=== PATIENT | male | born 1960 | race Caucasian/White ===

== ENCOUNTER 2019-10-15 18:35 | Inpatient (IN) | payer MEDICAID, OTHER ==
[~2019-10-15] VITALS: Ht 182.9 cm; Wt 136.1 kg
--- NOTE | 2019-10-15 18:47 | NUR ---
PATIENT DENIES OTHER COMPLAINTS
[2019-10-15 18:59] VITALS: Ht 182.9 cm; Wt 136.1 kg
--- NOTE | 2019-10-15 19:08 | NUR ---
REPORT TO LEXII DE SANTIAGO
--- NOTE | 2019-10-15 19:11 | NUR ---
REPORT RECIEVED FROM OLIVE SHULTZ
--- NOTE | 2019-10-15 19:49 | NUR ---
CONSENT FOR TDAP VACCINATION SIGNED AND PLACED IN CHART
--- NOTE | 2019-10-15 19:49 | NUR ---
WOUND CULTURE COLLECTED AND SENT TO LAB
--- NOTE | 2019-10-15 20:02 | NUR ---
XRAY AT BEDSIDE
[2019-10-15] MEDS ORDERED: ZESTRIL40 MG PO (21:09)
[2019-10-15] MEDS ORDERED: COUMADIN2 MG PO (21:09)
[2019-10-15 21:32] LABS: BASOPHIL % 0.3 % (0-2); PLATELET COUNT 137 x10^3mcL (130-400); RED CELL DISTRIBUTION WIDTH 14.1 % (11.5-14.5)
[2019-10-15 21:41] LABS: CALCIUM 8.9 mg/dL (8.5-10.1); CARBON DIOXIDE 28.4 mmol/L (21-32); CHLORIDE SERUM 103 mmol/L (98-107); CREATININE SERUM 0.8 mg/dL (0.7-1.3); GFR1 > 60 mL/min; GLUCOSE SERUM 91 mg/dL (74-106); POTASSIUM SERUM 3.6 mmol/L (3.5-5.1); SODIUM SERUM 138 mmol/L (136-145)
[2019-10-15 21:46] LABS: ALKALINE PHOSPHATASE 104 U/L (46-116); ALT/SGPT 46 U/L (16-63); AST/SGOT 65 U/L (15-37); BILIRUBIN TOTAL 1.43 mg/dL (0.20-1.00); TOTAL PROTEIN, SERUM 8.1 g/dL (6.4-8.2)
--- NOTE | 2019-10-15 21:46 | NUR ---
REPORT GIVEN TO KIANA SHULTZ. ALL QUESTIONS AND CONCERNS ADDRESSED AT THIS TIME
[2019-10-15 21:51] LABS: ALBUMIN 3.3 g/dL (3.4-5.0)
[2019-10-15 22:33] VITALS: BP 155/90
--- NOTE | 2019-10-15 22:33 | NUR ---
PT C/O 06/04 RLE PAIN. MORPHINE GIVEN PER ORDER. SPOKE TO DR. TSAI REGARDING PT TAKING COUMADIN. RESIDENT STATED PT TO START ON HEPARIN SQ D/T PT BEING UNCERTAIN OF HIS COUMADIN DOSE.
--- NOTE | 2019-10-15 22:48 | NUR ---
RECEIVED PT FROM ER, PT ADMIT FOR CRUSH INJURY RIGHT ANKLE, PT IS A/O X4, VERBAL RESPONSIVE, LUNG SOUND CLEAR BILATERAL, NO COUGH, NO SOB. PT DENY ANY CHEST PAIN OR DISCOMFORT, BOWEL SOUND PRESENT ALL 4 QUADRANTS, NO DISTENTION, NO TENDER. PT COME UP FROM ER, RIGTH LOW EXTREMITIES WAS WRAPPED WITH SPLINT. PT STATE HE HAS OPEN WOUND AT BOTH SIDE OF ANKLE, UNABLE TO REMOVE THE WRAP TO TAKE PICTURE AT THIS MOMENT, PT DENY ANY NUMBNESS OR TINGLING AT RIGHT TOES. IV AT LEFT HAND, NO LEAKING, NO INFILTRATION. ALL ADLS ASSIST, ALL NEED MET, CALL LIGHT IN REACH, WILL CONTINUE TO MONITOR.
--- NOTE | 2019-10-16 00:29 | NUR ---
PT RESTING IN BED WITH EYES CLOSED. NO SIGNS OF DISTRESS OR PAIN NOTED. BREATHING EVEN/UNLABORED ON RA. RLE SPLINTED AND ELEVATED WITH PILLOWS AND TOWELS. CALL LIGHT WITHIN REACH, BED AT LOWEST POSITION. WILL CONTINUE TO MONITOR.
--- NOTE | 2019-10-16 02:37 | NUR ---
SPOKE TO PHARMACY INQUIRING COUMADIN VERIFICATION. PHARMACIST STATED "MORNING PHARMACY TAKES CARE OF THAT." INFORMED DR. TSAI COUMADIN TO BE STARTED ON DAY SHIFT. PT SNORING. RLE ELEVATED. SPLINT IN PLACE.
--- NOTE | 2019-10-16 05:30 | NUR ---
PT AWAKE AND C/O RLE PAIN 05/04. DECLINED MORPHINE, PT STATED "I DON'T KNOW HOW IT MAKES ME FEEL." NORCO GIVEN INSTEAD. RLE SPLINT IN PLACE, DRESSING CDI. ELEVATED BY PILLOWS. PENDING PODIATRY CONSULT TODAY. CALL LIGHT WITHIN REACH, BED AT LOWEST POSITION. WILL ENDORSE TO DAY NURSE.
[2019-10-16 05:49] VITALS: BP 126/77
[2019-10-16 06:48] LABS: UA SPECIFIC GRAVITY 1.025 (1.005-1.035); microscopic required? YES; urine erythrocyte NEGATIVE (NEGATIVE)
--- NOTE | 2019-10-16 07:10 | NUR ---
RECIEVED PATIENT FROM [facility] NURSE. PATIENT AWAKE AND ORIENTED. NS INFUSING TO LEFT HAND AT 100/HOUR. RLE SPLINT CAST INTACT. RLE ELEVATED ON PILLOW. DRESSING CHANGE PERFORMED BY PODIATRY. PICTURES TAKEN AND PLACED IN PATIENT'S CHART. EYTHEMA AND EDEMA PRESENT TO ANTERIOR AND POSTERIOR ANKLE. MORPHINE ADMINISTERED PRIOR TO DRESSING CHANGE NOT ENOUGH TIME ELAPSED TO GIVE NORCO. PATIENT SENT FOR CT OF ANKLE. CURRENTLY AWAITING ANKLE CT RESULTS.
[2019-10-16 07:31] LABS: CALCIUM 8.5 mg/dL (8.5-10.1); CARBON DIOXIDE 27.4 mmol/L (21-32); CHLORIDE SERUM 105 mmol/L (98-107); CREATININE SERUM 0.7 mg/dL (0.7-1.3); GFR1 > 60 mL/min; GLUCOSE SERUM 75 mg/dL (74-106); MAGNESIUM 1.9 mg/dL (1.8-2.4); PHOSPHOROUS 3.5 mg/dL (2.5-4.9); POTASSIUM SERUM 3.3 mmol/L (3.5-5.1); SODIUM SERUM 140 mmol/L (136-145)
[2019-10-16 08:17] LABS: AMPHETAMINE QUAL UR NONE DETECTED (See below)
[2019-10-16 08:25] LABS: BASOPHIL % 0.2 % (0-2); PLATELET COUNT 121 x10^3mcL (130-400); RED CELL DISTRIBUTION WIDTH 14.4 % (11.5-14.5)
[2019-10-16 08:34] VITALS: BP 136/87
[2019-10-16 12:24] VITALS: BP 132/78
[2019-10-16 17:47] VITALS: BP 140/87
--- NOTE | 2019-10-16 17:53 | NUR ---
CURRENTLY SPEAKING WITH PATIENT'S COUSIN- JACQUELINE DE OLIVEIRA. PATIENT'S COUSIN CLAIMS THAT PATIENT IS CURRENTLY HOMELESS AND LIVING OUT OF VAN- PATIENT CONFIRMS THIS INFORMATION. PATIENT'S COUSIN IS CONSIDERED ABOUT PATIENT BEING ABLE TO ADHERE TO FOLLOW UP TREATMENT DUE TO LIVING SITUATION. WILL CONTACT SPLITTER TENDER REGARDING THIS PATIENT AND HIS SITUATION.
--- NOTE | 2019-10-16 18:38 | NUR ---
PATIENT CURRENTLY AWAKE AND IN BED. IV SALINE LOCKED TO LEFT HAND. NO REPORT OF PAIN AT THIS TIME. BED IN THE LOW POSITION. SAFETY PRECAUTIONS IN PLACE. WILL ENDORSE CARE TO NOC NURSE.
--- NOTE | 2019-10-16 19:30 | NUR ---
REC'D PT FROM DAY NURSE. PT RESTING IN BED. AAOX4, SPEECH CLEAR, FOLLOWS COMMANDS. MED SURG, NO TELE. DENIES CP, DIZZINESS, OR PALPITATIONS. DENIES RESP DISTRESS OR SOB. BREATHING EVEN/UNLABORED ON RA. TRACE EDEMA RLE. SPLINT WITH DRESSING IN PLACE. C/O THROBBING PAIN 05/04, WILL MEDICATE. MILD NUMBING RLE. ABLE TO WIGGLE TOES. VOIDING FREELY. IV TO LH FLUSHED AND PATENT, SITE WNL. CALL LIGHT WITHIN REACH, BED AT LOWEST POSITION. WILL CONTINEU TO MONITOR.
[2019-10-16 19:40] VITALS: BP 127/74
--- NOTE | 2019-10-16 19:43 | NUR ---
REC'D CONSENT TO RETRIEVE MED RECORDS FROM [facility]
--- NOTE | 2019-10-17 00:45 | NUR ---
PT RESTING IN BED WITH EYES CLOSED. SNORING. NO SIGNS OF DISTRESS OR PAIN NOTED. BREATHING EVEN/UNLABORED ON RA. RLE ELEVATED. SPLINT IN PLACE. DRESSING CDI. CALL LIGHT WITHIN REACH, BED AT LOWEST POSITION. WILL CONTINUE TO MONITOR.
--- NOTE | 2019-10-17 01:00 | NUR ---
DR. AMADOR MADE AWARE OF UA 1+ LEUKOCYTES WELL PODIATRY RECOMMENDATIONS OF ADDING PROPHYLACTIC ABX. STATED WILL NOT ADD ABX TONIGHT D/T WBC WNL BUT WILL CONSULT WITH DAY TEAM.
[2019-10-17 05:44] VITALS: BP 137/79
--- NOTE | 2019-10-17 06:38 | NUR ---
PODIATRY TEAM AT BEDSIDE TO ASSESS THE PT. DRESSING REMOVED. POST OP SHOE PROVIDED. INFORMED PODIATRY TEAM PROPHYLACTIC ABX HAVE NOT BEEN STARTED. THEY WILL REDRESS AND SPLINT THE R ANKLE AFTER ASSESSING THE PT. PT C/O 6/10 R FOOT PAIN. TORADOL GIVEN. INQUIRED PT IF HE IS HOMELESS. PT STATED THAT HE LIVES IN A [place] AFTER HIS AUNT'S HOME HAS FORECLOSED BUT USES HIS COUSIN'S ADDRESS. OK TO D/C TO [facility]. POSSIBLE D/C TODAY PER PODIATRY. WILL ENDORSE TO DAY NURSE.
[2019-10-17 06:52] LABS: BASOPHIL % 0.2 % (0-2); PLATELET COUNT 135 x10^3mcL (130-400); RED CELL DISTRIBUTION WIDTH 14.5 % (11.5-14.5)
[2019-10-17 07:05] LABS: CALCIUM 9.2 mg/dL (8.5-10.1); CARBON DIOXIDE 30.7 mmol/L (21-32); CHLORIDE SERUM 105 mmol/L (98-107); CREATININE SERUM 0.9 mg/dL (0.7-1.3); GFR1 > 60 mL/min; GLUCOSE SERUM 91 mg/dL (74-106); MAGNESIUM 2.3 mg/dL (1.8-2.4); PHOSPHOROUS 3.9 mg/dL (2.5-4.9); POTASSIUM SERUM 3.7 mmol/L (3.5-5.1); SODIUM SERUM 139 mmol/L (136-145)
[2019-10-17 07:24] VITALS: BP 139/80
--- NOTE | 2019-10-17 07:39 | NUR ---
RECEIVED PT FROM NOC RN. PT AA/OX4 LAYING IN BED. C/O CONTINUOUS THROBBING PAIN TO RLE ANKLE. RATES 7/10. WORSE WITH MOVEMENT. DRESSING CHANGE COMPLETED BY PODIATRY AT BEDSIDE. DRESSING CDI. GIVEN PO PAIN MED, SEE MAR. NO SOB ON ROOM AIR. NO CHEST PAIN. MED SURG. NO N/V. CALM/COOPERATIVE. FALL PREC IN PLACE. INSTRUCTED TO USE CALL LIGHT TO CALL FOR ASSISTANCE PRN. PT VERBALIZED UNDERSTANDING. IV WNL TO LH, NO REDNESS, NO SWELLING, NO INFILTRATION. SALINE LOCKED. BED IN LOW POSITION. CALL LIGHT WITHIN REACH. WILL CONT. TO MONITOR.
--- NOTE | 2019-10-17 10:47 | NUR ---
PT LAYING IN BED. AA/OX4. NO C/O PAIN AT THIS TIME. NO N/V. NO SOB ON ROOM AIR. SPLINT IN PLACE TO RLE. ORTHOE SHOE IN PLACE TO RLE. CALM/COOPERATIVE. NO S/S OF ACUTE DISTRESS. BED IN LOW POSITION. CALL LIGHT WITHIN REACH. WILL CONT. TO MONITOR.
[2019-10-17] MEDS ORDERED: KEFLEX500 M1 PO (11:30)
[2019-10-17 11:56] VITALS: BP 142/92
[2019-10-17] MEDS ORDERED: MOT800 PO (12:36)
--- NOTE | 2019-10-17 14:03 | NUR ---
PT BEING DISCHARGED TO HOME, STAYING WITH RELATIVE/SISTER. AWAKE, ALERT, ORIENTED X4. NO C/O PAIN AT THIS TIME. DISCHARGE EDUCATION PROVIDED TO PATIENT. INSTRUCTED TO FOLLOW UP WITH PCP AND SPIRITS MODEL. DR. BELLAMY TO MAKE APPOINTMENT AND CONTACT PT WITH FOLLOW UP APPT INFORMATION, UNABLE TO MAKE APPT AT THIS TIME. INSTRUCTED TO LEAVE SPLINT IN PLACE TO RLE. PT VERBALIZED UNDERSTANDING. UNABLE TO TAKE DISCHARGE PHOTO, DRESSING CDI, CHANGED BY SPIRITS MODEL THIS AM. IV REMOVED FROM LFA, CATHETER IN TACT. PRESSURE APPLIED. SITE WNL. NO REDNESS, NO SWELLING, NO INFILTRATION. DRESSING SUPPLIES PROVIDED TO PATIENT. MEAL TO GO GIVEN TO PATIENT. BELONGINGS WITH PATIENT. NO SOB ON ROOM AIR. NO CHEST PAIN. ORTHO SHOE IN PLACE TO RLE. TAKEN TO DISCHARGE LOBBY BY SY [place] BY WHEELCHAIR. GREGORIO LOVE DISCUSSED PATIENT QUESTIONS/CONCERNS AT BEDSIDE. PT VERBALIZED UNDERSTANDING.
== END 2019-10-17 14:00 | disposition home or self-care (01) | DRG 384 ==
LOC: ED 18:35 → MU 20:48
PROVIDERS: Emergency Medicine; ADMIT Family Medicine
PROC: 2W3LX1Z Immobilization of Right Lower Extremity using Splint (ICD-10-PCS; principal; 2019-10-15)
DX: S90.511A Abrasion, right ankle, initial encounter (principal); E11.51 Type 2 diabetes mellitus with diabetic peripheral angiopathy without gangrene; E44.1 Mild protein-calorie malnutrition; S91.031A Puncture wound without foreign body, right ankle, initial encounter; I25.2 Old myocardial infarction; B35.1 Tinea unguium; S97.01XA Crushing injury of right ankle, initial encounter; I10 Essential (primary) hypertension; E66.9 Obesity, unspecified; Z68.36 Body mass index [BMI] 36.0-36.9, adult; Z79.01 Long term (current) use of anticoagulants; Z98.61 Coronary angioplasty status; W20.8XXA Other cause of strike by thrown, projected or falling object, initial encounter; Y92.015 Private garage of single-family (private) house as the place of occurrence of the external cause
CPT/HCPCS: 82962; 90658; 90715; 97116-GP; G0378; J0690; J1885; J2270; J2405; J3010; Q0092